=== PATIENT | male | born 1945 | race Caucasian/White ===

== ENCOUNTER 2017-02-25 12:40 | Outpatient (CLI) | payer MEDICARE ==
--- NOTE | 2017-02-25 14:36 | MRI ---
MRI OF THE CERVICAL SPINE WITHOUT CONTRAST: INDICATION: History of cervical spondylosis with myelopathy. The patient is complaining of bilateral hand and f may numbness has progressed worsened over the last 8 months. The patient has no history of neck i njury or surgical repair. TECHNIQUE: Multiplanar, multisequence MR images were obtained in the cervical spine without IV contrast. COMPARISON: No comparisons are available. FINDINGS: Visualized posterior fossa is unremarkable-appearing. The C1-C2 articulations appear within normal limits. There is mild degenerative change seen surroun ding the odontoid. At C2-C3, there is facet joint degenerative change with uncovertebral hypertrophy inducing moderate right and mild left neural foraminal narrowing. At C3-4, there is facet joint degenerative change with uncovertebral hypertrophy inducing moderate t o severe right and moderate left neural foraminal narrowing. There is mild central canal narrowing due to the broad-based disk-osteophyte complex. At C4-5, there is disk-osteophyte complex with a small central protrusion causing mild to moderate e ffacement of the ventral spinal cord. There is severe left and moderate right neural foraminal narr owing due to facet joint degenerative change and uncovertebral hypertrophy. At C5-6, there is a broad-based disk-osteophyte complex, facet joint degenerative change, and uncove rtebral hypertrophy inducing severe left and moderate to severe right neural foraminal narrowing. T here is mild central canal narrowing. At C6-7, there is a broad-based disk-osteophyte complex and uncovertebral hypertrophy inducing moder ate to severe right and moderate left neural foraminal narrowing. There is mild central canal narro wing. At C7-T1, there is no appreciable central canal or neural foraminal narrowing. IMPRESSION: 1. Central protrusion at C4-5 induces mild to moderate effacement of the ventral spinal cord. No c ord signal abnormality is evident. 2. Mild central canal narrowing at C6-7. 3. Multilevel prominent neural foraminal narrowing as above. POS: HAIR
--- NOTE | 2017-02-25 15:28 | MRI ---
MRI LUMBAR SPINE: HISTORY: Back pain. FINDINGS: Multiplanar, multisequence noncontrast-enhanced MRI images of lumbar spine obtained. For the purposes of this dictation, the last freely mobile vertebral body will be considered to be t he L5 vertebral body. All other vertebral bodies will be numbered according to this. There is grade I anterolisthesis of L3 on L4. L1-2: There is disk desiccation and a broad-based disk bulge. Bilateral facet and ligamentum flavu m hypertrophy is seen. This results in mild central L1-2 spinal stenosis with a lateral recess sten osis. Mild to moderate bilateral neural foraminal narrowing is also seen. There are Modic-type II changes seen involving the superior end plate of L2. L2-3: There is disk desiccation seen. There is disk space height loss seen. There is a broad-base d disk bulge with bilateral facet hypertrophy. This results in mild central and left L2-3 lateral r ecess stenosis. Mild bilateral neural foraminal narrowing is also seen. L3-4: Grade I anterolisthesis of L3 on L4 is seen. There is a broad-based disk bulge with bilatera l facet and ligamentum flavum hypertrophy resulting in severe central and lateral recess stenosis. There is moderate to severe right and severe left-sided neural foraminal narrowing due to facet hype rtrophy as well as the anterolisthesis. Extensive edema and Modic type I changes seen involving muc h of the superior aspect of the L4 vertebral body. L4-5: Disk desiccation is seen. There is a broad-based disk-osteophyte complex centrally resulting in mild central and lateral recess stenosis. Bilateral moderate to severe facet hypertrophy and li gamentum flavum hypertrophy is seen. There is moderate right and severe left-sided neural foraminal narrowing due to facet hypertrophic changes. L5-S1: Disk desiccation is seen. There is bilateral facet hypertrophy seen. No significant degree of central stenosis seen. Moderate bilateral neural foraminal narrowing is seen. IMPRESSION: Grade I anterolisthesis with significant central and lateral recess stenosis and facet hypertrophy. End plate Modic type I changes seen. POS: ESTELA
== END 2017-02-25 12:41 | disposition home or self-care (01) ==
LOC: TBSIIMAG 12:40
PROVIDERS: ATTEND Neurological Surgery
DX: M48.061 Spinal stenosis, lumbar region without neurogenic claudication (principal); M47.12 Other spondylosis with myelopathy, cervical region; M50.021 Cervical disc disorder at C4-C5 level with myelopathy; M48.02 Spinal stenosis, cervical region; M43.16 Spondylolisthesis, lumbar region
CPT/HCPCS: 72141; 72148

== ENCOUNTER 2017-04-22 06:53 | Inpatient (IN) | payer MEDICARE ==
[2017-04-19 08:38] VITALS: BMI 30.4
[2017-04-22 08:15] LABS: #Eosinphils 0.2 thou/uL (0.0-0.7); #Lymphocytes 1.8 thou/uL (1.20-3.40); #Monocytes 0.7 thou/uL (0.11-0.59); #Neutrophils 4.3 thou/uL (1.40-6.50); %Basophils 0.2 % (0.0-1.0); %Eosinophils 2.7 % (0.0-10.0); %Lymphocytes 25.9 % (21.0-51.0); Hematocrit 49.3 % (42.0-52.0); Mean Platelet Volume 7.5 fL (7.4-10.4); Red Blood Cell (RBC) Count 5.62 mill/uL (4.70-6.10)
[2017-04-22 08:43] LABS: Anion Gap 12 mmol/L (10-20); BUN (Urea Nitrogen) 16 mg/dL (8.4-25.7); Calc. Creatinine Clearance 114 mL/min (70-130); Calcium 9.2 mg/dL (7.8-10.44); Carbon Dioxide 28 mmol/L (23-31); Chloride 104 mmol/L (98-107); Estimated GFR-MDRD Greater than 90
[2017-04-22] MEDS ORDERED: Clindamycin/D5W 900 mg/50 ml Premix Bag ONE (08:45)
[2017-04-22] MEDS ORDERED: Dextrose 50% Abboject 50 ML SYRINGE ONE (08:45)
[2017-04-22] MEDS ORDERED: Levofloxacin 500 mg/D5W 100 ml Premix Bag ONE (08:45)
[2017-04-22] MEDS ORDERED: Sodium Chloride 0.9% 10 ML ONE (08:49)
[2017-04-22] MEDS ORDERED: Famotidine/PF 20 mg/2ml Vial ONE (08:58)
[2017-04-22] MEDS ORDERED: Fentanyl 250 MCG/5 ML VIAL ONE (09:04)
[2017-04-22] MEDS ORDERED: Promethazine HCl 25 MG/ML VIAL SLOW IVP PRN (10:30)
[2017-04-22] MEDS ORDERED: HYDROmorphone 2 MG/ML VIAL SLOW IVP PRN (10:30)
[2017-04-22] MEDS ORDERED: Ondansetron HCl/PF 4 MG/2 ML Vial IVP PRN (10:30)
[2017-04-22] MEDS ORDERED: Morphine Sulfate 2 MG/ML SYRINGE SLOW IVP PRN (10:30)
[2017-04-22] MEDS ORDERED: Promethazine HCl 25 MG/ML VIAL IM PRN ×2 (10:30→11:25)
[2017-04-22] MEDS ORDERED: Meperidine HCl/PF 25 MG/ML VIAL SLOW IVP PRN (10:30)
[2017-04-22] MEDS ORDERED: Fentanyl 100 MCG/2 ML VIAL ONE ×3 (11:11→11:51)
--- NOTE | 2017-04-22 11:13 | OP ---
DATE OF PROCEDURE: 04/22/2017 SURGEON: Todd El M.D. EQUIPMENT OPERATOR: Ganga Elizabeth PA-C PROCEDURES: L3-4 laminectomy, L3-4 posterolateral arthrodesis, pedicle screw instrumentation, demine ralized bone matrix, and local morselized autograft L3-4. DESCRIPTION OF PROCEDURE: The patient was brought into the operating room, intubated. He was rolled in the prone position on gel-filled chest rolls. Incision made exposing L3 and L4 bilaterally and o ur level was confirmed by x-ray. We performed complete L4 and inferior L3 laminectomy, completely de compressing the neural elements bilaterally. Next, we placed pedicle screws at L3 and L4 bilaterally using lateral fluoroscopic guidance. A sonja was secured between the screws, connected by nuts which were final tightened. The wound was then extensively irrigated, immaculate hemostasis was secured. A combination of demineralized bone matrix and local morselized autograft was laid over the posterola teral surfaces for the purpose of arthrodesis. Vancomycin powder was applied and the wound was close d in anatomic layers over a drain.
[2017-04-22] MEDS ORDERED: Promethazine HCl 12.5 MG SUPP PR PRN (11:25)
[2017-04-22] MEDS ORDERED: Morphine 4 MG/ML Carpuject SLOW IVP PRN (11:25)
[2017-04-22] MEDS ORDERED: tiZANidine HCl 4 MG TAB PO PRN (11:25)
[2017-04-22] MEDS ORDERED: HYDROcodone/Acetaminophen 10/325 mg Tablet PO PRN (11:25)
[2017-04-22] MEDS ORDERED: Promethazine 25 MG TAB PO PRN (11:25)
[2017-04-22] MEDS ORDERED: Ondansetron HCl/PF 4 MG/2 ML Vial IM PRN (11:25)
[2017-04-22] MEDS ORDERED: Milk Of Magnesia 30 ML UDCUP PO PRN (11:25)
[2017-04-22] MEDS ORDERED: Mag-Al 1200 mg/1200 mg/30 ML UDCUP PO PRN (11:25)
[2017-04-22] MEDS ORDERED: Morphine 4 MG/ML VIAL SLOW IVP PRN ×2 (11:28)
[2017-04-22] MEDS ORDERED: Dexamethasone 20 MG/5 ML VIAL ONE (16:18)
[2017-04-22] MEDS ORDERED: Glycopyrrolate 0.2 MG/ML 5 ML SYRINGE ONE (16:18)
[2017-04-22] MEDS ORDERED: Metoclopramide HCl 10 MG/2 ML VIAL ONE (16:18)
[2017-04-22] MEDS ORDERED: ePHEDrine/0.9% NaCl/PF SYRINGE 50 mg/10 ml ONE (16:18)
[2017-04-22] MEDS ORDERED: PHENYLEPHRINE-NS 100 MCG/ML 10 ML SYRINGE ONE (16:18)
[2017-04-22] MEDS ORDERED: Propofol 200 MG/20 ML VIAL ONE (16:18)
[2017-04-22] MEDS ORDERED: Lidocaine 1% PF 5 ML VIAL ONE (16:18)
[2017-04-22] MEDS ORDERED: Ondansetron HCl/PF 4 MG/2 ML Vial ONE (16:18)
[2017-04-22] MEDS: Clindamycin/D5W 900 MG in Premix Bag 1 BAG IVPB SCH (17:52)
[2017-04-22] MEDS: Sodium Chloride 0.9% 1,000 ML IV SCH (17:55)
--- NOTE | 2017-04-22 18:22 | EKG ---
Test Reason : PREOP Blood Pressure : / mmHG Vent. Rate : 056 BPM Atrial Rate : 056 BPM P-R Int : 296 ms QRS Dur : 152 ms QT Int : 464 ms P-R-T Axes : 093 -48 -04 degrees QTc Int : 447 ms Sinus bradycardia with 1st degree A-V block with Premature atrial complexes and Premature ventricular complexes or Fusion complexes Right bundle branch block Left anterior fascicular block Bifascicular block Cannot rule out Inferior infarct (masked by fascicular block?) , age undetermined Abnormal ECG No previous ECGs available Confirmed by GARRY LAMBERT ([id number]) on 04/22/2017 6:21:55 PM Referred By: COLUMBA Confirmed By:GARRY LAMBERT
[2017-04-22] MEDS ORDERED: traMADol HCl 50 MG TAB PO PRN (18:47)
[2017-04-22] MEDS: HYDROcodone/Acetaminophen 10/325 mg Tablet PO PRN (20:15)
[2017-04-22] MEDS ORDERED: Gabapentin 400 MG CAP PO SCH (21:00)
[2017-04-22] MEDS ORDERED: NPH, Human Insulin Isophane 300 UNIT/3 ML VIAL SC SCH ×2 (21:00)
[2017-04-22] MEDS ORDERED: Atorvastatin Calcium 40 MG TAB PO SCH (21:00)
[2017-04-22] MEDS ORDERED: Dextrose 5% in Water 1,000 ML IV PRN (21:29)
[2017-04-22] MEDS ORDERED: Dextrose 50% Abboject 50 ML SYRINGE SLOW IVP PRN (21:29)
[2017-04-22] MEDS ORDERED: Insulin Regular 300 UNITS/3 ML VIAL SC PRN (21:29)
--- NOTE | 2017-04-22 21:29 | PDOC.PN ---
- Subjective Encounter Start Date: 04/22/17 Encounter Start Time: 20:00 Patient seen and examined. No new complaints. Consult for med mngt - Objective MAR Reviewed: Yes Vital Signs & Weight: Vital Signs (12 hours) Temp Pulse Resp BP Pulse Ox 04/22/17 20:00 98.1 F 106 H 18 164/87 H 92 L 04/22/17 16:20 98.1 F 106 H 18 175/90 H 97 Weight Weight 224 lb Result Diagrams: 04/22/17 08:06 04/22/17 08:06 Additional Labs: Accuchecks 04/22/17 04/22/17 04/22/17 16:07 13:14 11:28 POC Glucose 201 H 70 66 L 04/22/17 08:42 POC Glucose 59 L* EKG Reviewed by me: Yes (SR) Phys Exam - Physical Examination Constitutional: NAD Respiratory: no wheezing, no rhonchi Cardiovascular: RRR, no rub Gastrointestinal: soft, non-tender, positive bowel sounds Musculoskeletal: no edema Neurological: moves all 4 limbs Psychiatric: normal affect, A&O x 3 Dx/Plan - Plan DVT proph w/SCDs IMPRESSION: 1. DM2 - on Insulin/Metformin 2. Hypoglycemia due to insulin dose on the day of surgery 3. HTN 4. Obesity BMI 30.4 5. HLD - on statins 6. Chronic pain syndrom on Gabapentin/Gerber PRN PLAN: * Start sliding scale * Reduce NPH to 35 BID * Cont Metformin * Cont other meds as below * Add PRN meds * Full code. DPOA - family * Will follow. Thank you for this consultation Review of Systems - Review of Systems Constitutional: negative: Fever, Chills, Sweats, Weakness, Malaise Respiratory: negative: Cough, Dry, Shortness of Breath, Hemoptysis, SOB with Excertion, Pleuritic Pain, Sputum, Wheezing Cardiovascular: negative: Chest Pain, Palpitations, Orthopnea, Paroxysmal Noc. Dyspnea, Edema, Light Headedness - Medications/Allergies Allergies/Adverse Reactions: Allergies Allergy/AdvReac Type Severity Reaction Status Date / Time Penicillins Allergy Rash Verified 04/19/17 08:38 Medications: Current Medications Hydrocodone Bitart/Acetaminophen (Gerber 10/325) 1 tab PO Q4H PRN PRN Reason: PAIN (1-3) Hydrocodone Bitart/Acetaminophen (Gerber 10/325) 2 tab PO Q4H PRN PRN Reason: PAIN (4-6) Last Admin: 04/22/17 20:15 Dose: 2 tab Al Hydroxide/Mg Hydroxide (Maalox) 30 ml PO Q4H PRN PRN Reason: Heartburn or Indigestion Atorvastatin Calcium (Lipitor) 80 mg PO HS [facility] Enalapril Maleate (Vasotec) 20 mg PO BID [facility] Gabapentin (Neurontin) 800 mg PO TID [facility] Hydrochlorothiazide (Hydrochlorothiazide) 25 mg PO QAM [facility] Sodium Chloride (Normal Saline 0.9%) 1,000 mls @ 75 mls/hr IV .[id number] [facility] Last Admin: 04/22/17 17:55 Dose: Not Given Clindamycin Phosphate/Dextrose (900 mg/ Device) 50 mls @ 100 mls/hr IVPB 0100, 0900,1700 [facility] Last Admin: 04/22/17 17:52 Dose: 50 mls Insulin Human NPH (Humulin N) 50 unit SC BID [facility] Insulin Human Regular (Humulin R) 20 units SC BID[facility] Magnesium Hydroxide (Milk Of Magnesium) 30 ml PO Q12H PRN PRN Reason: Constipation Metformin HCl (Glucophage) 500 mg PO BID-[facility] Metoprolol Succinate (Toprol Xl) 25 mg PO DAILY [facility] Morphine Sulfate (Morphine) 2 mg SLOW IVP Q1H PRN PRN Reason: Moderate Breakthrough Pain Morphine Sulfate (Morphine) 4 mg SLOW IVP Q1H PRN PRN Reason: Severe Breakthrough Pain Ondansetron HCl (Zofran) 4 mg IM Q24H PRN PRN Reason: Nausea/Vomiting Promethazine HCl (Phenergan) 12.5 mg IM Q4H PRN PRN Reason: Nausea/Vomiting Promethazine HCl (Phenergan) 12.5 mg PO Q4H PRN PRN Reason: Nausea/Vomiting Promethazine HCl (Phenergan Suppository) 12.5 mg MA Q4H PRN PRN Reason: Nausea/Vomiting Sodium Chloride (Flush - Normal Saline) 10 ml IVF PRN PRN PRN Reason: Saline Flush Tizanidine HCl (Zanaflex) 4 mg PO Q6H PRN PRN Reason: MUSCLE SPASM Tramadol HCl (Ultram) 50 mg PO DAILYPRN PRN PRN Reason: Mild Pain (1-3)
[2017-04-22] MEDS ORDERED: hydrALAZINE 20 MG/ML VIAL SLOW IVP PRN (21:31)
[2017-04-23] MEDS ORDERED: metFORMIN 500 MG TAB PO SCH (08:00)
[2017-04-23] MEDS ORDERED: Insulin Regular 300 UNITS/3 ML VIAL SC SCH (08:00)
[2017-04-23 08:36] VITALS: BP 163/84; TEMP 98
[2017-04-23] MEDS: Clindamycin/D5W 900 MG in Premix Bag 1 BAG IVPB SCH ×2 (09:22→09:35)
[2017-04-23] MEDS: Hydrochlorothiazide 25 MG TAB PO SCH ×2 (09:22→09:24)
[2017-04-23] MEDS: HYDROcodone/Acetaminophen 10/325 mg Tablet PO PRN (09:24)
[2017-04-23] MEDS: Sodium Chloride 0.9% 1,000 ML IV SCH (10:39)
--- NOTE | 2017-05-24 08:20 | DIS ---
HOSPITAL COURSE: The patient is a 72-year-old male recently seen in clinic for progressive ly worsening low back pain and symptoms of neurogenic claudication. MRI of his lumbar spine revealed severe degenerative changes throughout the lumbar spine as well as lumbar stenosis and spondylolisth esis at L3, L4, L5. Therefore, the patient underwent L3-L4 decompression and fusion on 04/22/2017. The patient was admitted overnight. Following his surgery, ROSITA drain was placed intraoperatively. It had decreasing minimal output and was removed the following day. The patient's pain was well contro lled. He was tolerating a regular diet. He was voiding appropriate. He was discharged home the without any complications. I discussed precautions, home care, and provided prescriptions for Trufant, Zanaflex, and Keflex. We will plan to follow up with the patient in 2 weeks in the offic e. Please reach out to the Neurosurgery Service for additional questions or concerns.
== END 2017-04-23 12:10 | disposition home or self-care (01) | DRG 460 ==
LOC: SDC 06:53 → OBSVTOIN 16:57 → SJJU 16:57
PROVIDERS: ADMIT Neurological Surgery; ATTEND Neurological Surgery
PROC: 01NB0ZZ Release Lumbar Nerve, Open Approach (ICD-10-PCS; principal; 2017-04-22)
PROC: 0SG0071 Fusion of Lumbar Vertebral Joint with Autologous Tissue Substitute, Posterior Approach, Posterior Column, Open Approach (ICD-10-PCS; 2017-04-22)
DX: M48.061 Spinal stenosis, lumbar region without neurogenic claudication (principal); E11.649 Type 2 diabetes mellitus with hypoglycemia without coma; M43.16 Spondylolisthesis, lumbar region; Z79.4 Long term (current) use of insulin; Z79.84 Long term (current) use of oral hypoglycemic drugs; I10 Essential (primary) hypertension; E66.9 Obesity, unspecified; Z68.30 Body mass index [BMI] 30.0-30.9, adult; E78.5 Hyperlipidemia, unspecified; G89.4 Chronic pain syndrome; I25.10 Atherosclerotic heart disease of native coronary artery without angina pectoris
CPT/HCPCS: 36415; 36416; 76001; 80048; 85025; 93005; 93010; A4216; C1713; C1768; J0131; J1100; J1815; J1956; J2001; J2405; J2704; J2765; J3010; J3370; J3490; S0028

== ENCOUNTER 2017-05-07 10:34 | Outpatient (CLI) | payer MEDICARE ==
--- NOTE | 2017-05-07 13:33 | RAD ---
LUMBAR SPINE TWO VIEWS: History: Lumbar stenosis. Comparison: None. FINDINGS: Two views of the lumbar spine. There are five lumbar type vertebral bodies. Laminectomy defect at L4. Bilateral transpedicular screws at L3 and L4. Grade I anterolisthesis of L3 on L4. Multilevel degene rative disc disease with loss of disc space height and osteophyte formation. IMPRESSION: Degenerative changes and post-surgical changes as detailed above. POS: HAIR
== END 2017-05-07 10:35 | disposition home or self-care (01) ==
LOC: TBSI PT 10:34
PROVIDERS: ATTEND Physician Assistant
DX: M48.061 Spinal stenosis, lumbar region without neurogenic claudication (principal); M47.816 Spondylosis without myelopathy or radiculopathy, lumbar region; Z98.890 Other specified postprocedural states
CPT/HCPCS: 72100

== ENCOUNTER 2017-06-18 15:53 | Outpatient (CLI) | payer MEDICARE ==
--- NOTE | 2017-06-18 16:25 | RAD ---
TWO VIEWS LUMBAR SPINE: Date: 06-18-17 Comparison: 05-07-17 History: Re-evaluate lumbar spine following surgery. FINDINGS: Five lumbar type vertebral bodies are present. Bilateral pedicle screws noted at L3 and L4 with verti herminio oriented interlocking rods, stable. Stable retrolisthesis of L2 on L3 measures in the 6 mm range. Stable anterolisthesis of L3 on L4 remington ures in the 6 mm range. There is disc space narrowing, degenerative endplate change and anterior oste ophyte formation at L4-5 and L5-S1, stable. Multilevel facet hypertrophic change noted at L3, L4, and L5. No acute fracture is seen. IMPRESSION: Extensive degenerative change and stable post-operative changes as described above. POS: HAIR
== END 2017-06-18 15:54 | disposition home or self-care (01) ==
LOC: TBSIIMAG 15:53
PROVIDERS: ATTEND Neurological Surgery
DX: M48.061 Spinal stenosis, lumbar region without neurogenic claudication (principal); M47.896 Other spondylosis, lumbar region; Z98.890 Other specified postprocedural states
CPT/HCPCS: 72100

== ENCOUNTER 2017-07-10 10:27 | Outpatient (CLI) | payer MEDICARE ==
[2017-07-10] MEDS ORDERED: Iopamidol 370 76% 100 ML VIAL ONE (11:40)
--- NOTE | 2017-07-10 12:50 | CT ---
CT ANGIO OF CHEST PERFORMED WITH INTRAVENOUS CONTRAST ENHANCEMENT WITH 3D RECONSTRUCTIONS: History: Follow up thoracic aorta aneurysm from exam done in [place]. Comparison: None. FINDINGS: There is elevated right hemidiaphragm with linear change in the right base which is probably related to scar on the basis of elevation. There is no pulmonary nodules or pleural effusions. No significant mediastinal or hilar adenopathy. There is fairly pronounced coronary artery calcificat ions in the left anterior descending. The ascending aorta just above the aortic root measures 3.7 cm. The aorta tapers in the region of the aortic arch and measures approximately 2.6 cm, just beyond the left subclavian artery take off. It t hen slightly dilates to 3.2 cm and promptly tapers to 2.5 cm at the esophageal hiatus. There are arthritic changes of the spine. The visualized liver parenchyma is unremarkable on this ang iographic phase exam. Right and left adrenal glands are normal. IMPRESSION: 1. Elevated right hemidiaphragm. 2. Aortic measurements as discussed above. 3. Coronary artery calcifications with fairly dense calcifications in the left anterior descending. POS: C
== END 2017-07-10 10:28 | disposition home or self-care (01) ==
LOC: CT 10:27
PROVIDERS: ATTEND Internal Medicine Cardiovascular Disease
DX: I71.2 Thoracic aortic aneurysm, without rupture (principal); Q79.1 Other congenital malformations of diaphragm; I25.10 Atherosclerotic heart disease of native coronary artery without angina pectoris
CPT/HCPCS: 71275

== ENCOUNTER 2017-07-30 05:50 | Day surgery (SDC) | payer MEDICARE ==
[2017-07-29 13:02] VITALS: BMI 32.1
[2017-07-30] MEDS ORDERED: Lidocaine 1% (PF) 30 ML VIAL ONE (06:32)
[2017-07-30] MEDS ORDERED: Midazolam HCl 2 mg/2 ml Vial ONE (08:14)
[2017-07-30] MEDS ORDERED: Fentanyl 250 MCG/5 ML VIAL ONE (08:15)
[2017-07-30] MEDS ORDERED: Heparin 10,000 UNITS/1 ML VIAL ONE (08:51)
[2017-07-30] MEDS ORDERED: Iopamidol 370 76% 50 ML VIAL FS ONE (10:32)
[2017-07-30] MEDS ORDERED: Iopamidol 370 76% 100 ML VIAL ONE (10:32)
== END 2017-07-30 12:06 | disposition home or self-care (01) ==
LOC: CCL 05:50
PROVIDERS: ATTEND Internal Medicine Cardiovascular Disease
PROC: 4A023N7 Measurement of Cardiac Sampling and Pressure, Left Heart, Percutaneous Approach (ICD-10-PCS; principal; 2017-07-30)
DX: I25.119 Atherosclerotic heart disease of native coronary artery with unspecified angina pectoris (principal); Z88.0 Allergy status to penicillin
CPT/HCPCS: 82962; 85347 ×2; 93005; 93458; C1760; C1769 ×2; C1874; C1887; C9600; 36416; 92928; 93010; 99152; 99153; J1644; J2001; J2250; J3010